=== PATIENT | female | born 1995 | race Caucasian/White ===

== ENCOUNTER 2018-10-28 21:54 | Emergency (ER) | payer MEDICAID ==
[~2018-10-28] VITALS: Ht 162.6 cm; Wt 67.6 kg
[2018-10-28 22:21] VITALS: Ht 162.6 cm; Wt 67.6 kg
[2018-10-29 00:40] VITALS: BP 125/76
[2018-10-30 04:06] LABS: RAPID PLASMA REAGIN Non Reactive (Non Reactive)
== END 2018-10-29 01:04 | disposition home or self-care (01) ==
LOC: ED 21:54
PROVIDERS: Emergency Medicine
DX: N39.0 Urinary tract infection, site not specified (principal)
CPT/HCPCS: 87491; 87591; J0696; J1885

== ENCOUNTER 2018-11-07 05:44 | Emergency (ER) | payer MEDICAID ==
[~2018-11-07] VITALS: Ht 162.6 cm; Wt 67.6 kg
[2018-11-07 05:45] VITALS: Ht 162.6 cm; Wt 67.6 kg
[2018-11-07 07:21] LABS: UA SPECIFIC GRAVITY 1.025 (1.005-1.035); microscopic required? YES; urine erythrocyte 2+ (NEGATIVE)
[2018-11-07 07:44] VITALS: BP 112/74
== END 2018-11-07 08:28 | disposition home or self-care (01) ==
LOC: ED 05:44
PROVIDERS: Emergency Medicine
DX: N73.9 Female pelvic inflammatory disease, unspecified (principal)
CPT/HCPCS: 87491; 87591; J0696

== ENCOUNTER 2018-12-08 21:01 | Emergency (ER) | payer MEDICAID ==
[~2018-12-08] VITALS: Ht 165.1 cm; Wt 67.6 kg
[2018-12-08 21:09] VITALS: Ht 165.1 cm; Wt 67.6 kg
[2018-12-08 23:53] VITALS: BP 120/60
== END 2018-12-08 23:53 | disposition home or self-care (01) ==
LOC: ED 21:01
DX: B37.9 Candidiasis, unspecified (principal); Z90.89 Acquired absence of other organs